=== PATIENT | female | born 1955 | race Caucasian/White ===

== ENCOUNTER → 2025-03-28 | Day surgery (SDC) | payer MEDICARE ==
[2025-03-25 12:08] LABS: BASOPHILS % 0.4 % (0.0-1.0); EOSINOPHILS % 1.0 % (0.0-6.0); LYMPHOCYTES % 16.5 % (18.0-39.1); MONOCYTES % 4.6 % (4.4-11.3); NEUTROPHILS % 77.2 % (38.7-80.0); RED CELL DISTRIBUTION WIDTH 14.6 % (11.7-14.4)
[2025-03-25 12:45] LABS: EST GLOMERULAR FILTRATION RATE 62.0 ML/MIN (>=60)
[~2025-03-28] MED LIST: ABILIFY20 MG PO; ACETAMINOPHEN 1000 MG/100 ML IV PRN; ACETAMINOPHEN-1 EAC4 PO; ASPIRIN 325 MG TAB PO SCH; ASPIRIN81 MG PO; BREZTRI AEROS10.7 GM INH; BUPROPION HCL150 M2 PO; BUSPIRONE HCL10 MG PO; CALCIUM ACETAT667 MG PO; CELECOXIB 100 MG CAP PO SCH; DIPHENHYDRAMINE HCL INJ 50 MG/ML VIAL IV PRN; DOCUSATE SODIUM 100 MG CAP PO PRN; FENTANYL CITRATE/PF 100MCG/2 ML INJ ONE; FLONASE ALLERG9.9 ML INH; HYDROCODONE/APAP 5MG-325MG TAB PO PRN; HYDROCORTISONE SOD SUCCINATE 100 MG VIAL ONE; LEVOTHYROXINE50 MCG PO; LIDOCAINE HCL 10 MG/ML VIAL INJ ONE; LIDOCAINE HCL 2% LOCAL INJ 5 ML SDV VIAL INJ ONE; LISINOPRIL20 MG PO; MAGNESIUM250 MG; METOPROLOL SUCC50 MG PO; MIDAZOLAM HCL 2 MG/2 ML VIAL ONE; MYRBETRIQ25 MG PO; MYSOLINE50 MG PO; NEURONTIN400 MG PO; ONDANSETRON HCL INJ 2MG/ML 2ML 2 MG/ML VIAL IV PRN; ONDANSETRON HCL INJ 2MG/ML 2ML 2 MG/ML VIAL ONE; ONDANSETRON ODT4 MG PO; OZEMPIC1 MG/0.71; PREDNISONE5 MG PO; PROPOFOL IV EMULSION 10 MG/ML 20 ML VIAL ONE; ROPIVACAINE/EPI/CLONIDINE/KET 50 ML SYRINGE INJ ONE; SIMVASTATIN40 MG PO; SODIUM CHLORIDE 0.9% 1000ML 1,000 ML IV SCH; TRAZODONE HCL100 MG PO; VENTOLIN HFA18 GM INH; VITAMIN D
[2025-03-28] MEDS: CEFAZOLIN SODIUM 2 GM ONE (06:37)
[2025-03-28] MEDS: GABAPENTIN 300 MG CAP ONE (06:38)
[2025-03-28] MEDS: CELECOXIB 200 MG CAP ONE (06:38)
[2025-03-28] MEDS: DEXAMETHASONE SOD PHOS 10 MG/1 ML VIAL ONE (06:38)
[2025-03-28] MEDS: SODIUM CHLORIDE 0.9% 1000ML 1,000 ML ONE (08:37)
[2025-03-28] MEDS: HYDROCODONE/APAP 7.5MG-325MG 1 EA TAB PO PRN (11:17)
[2025-03-28 12:50] VITALS: BP 121/76; PULSE 80; RESP 17; O2SAT 95
== END | disposition home health service (06) ==
LOC: OR 05:12
PROVIDERS: ATTEND Specialist
DX: M17.12 Unilateral primary osteoarthritis, left knee (principal); M25.762 Osteophyte, left knee; I10 Essential (primary) hypertension; I25.10 Atherosclerotic heart disease of native coronary artery without angina pectoris; I49.9 Cardiac arrhythmia, unspecified; J44.9 Chronic obstructive pulmonary disease, unspecified; E11.9 Type 2 diabetes mellitus without complications; E66.01 Morbid (severe) obesity due to excess calories; M06.9 Rheumatoid arthritis, unspecified; F17.210 Nicotine dependence, cigarettes, uncomplicated; Z88.8 Allergy status to other drugs, medicaments and biological substances; Z01.812 Encounter for preprocedural laboratory examination; Z01.818 Encounter for other preprocedural examination; Z79.82 Long term (current) use of aspirin; Z79.85 Long-term (current) use of injectable non-insulin antidiabetic drugs; Z79.899 Other long term (current) drug therapy; Z68.39 Body mass index [BMI] 39.0-39.9, adult; Z71.3 Dietary counseling and surveillance; Z95.0 Presence of cardiac pacemaker; Z86.73 Personal history of transient ischemic attack (TIA), and cerebral infarction without residual deficits
CPT/HCPCS: 27447; 36415 ×2; 71046; 73560; 80048; 82948; 85025; 86850; 86900; 97116; 97161; C1713 ×2; C1776 ×3; J1100; J1720; J2003; J2250; J2405; J2704; J3010; J7030